=== PATIENT | female | born 1940 | race Caucasian/White ===

== ENCOUNTER → 2017-10-26 | Outpatient (CLI) | payer OTHER, MEDICAID ==
[~2017-10-26] MED LIST: CHOLESTEROL MED; CRESTOR20 MG PO; LOPRESSOR25 PO; LUNESTA1 MG PO; NEXIUM40 MG PO; ZANTAC
== END ==
LOC: M.RAD 12:36
DX: Z12.31 Encounter for screening mammogram for malignant neoplasm of breast (principal)

== ENCOUNTER → 2018-11-22 | Outpatient (CLI) | payer OTHER, MEDICAID | LOC: M.RAD 13:28 | DX: Z12.31 Encounter for screening mammogram for malignant neoplasm of breast (principal) ==

== ENCOUNTER 2019-05-15 15:46 | Emergency (ER) | payer OTHER, MEDICAID ==
[~2019-05-15] VITALS: Ht 162.6 cm; Wt 80.3 kg
[2019-05-15] MEDS ORDERED: TYLENOL325 MG PO (15:52)
[2019-05-15] MEDS ORDERED: DILTIAZEM ER90 M1 PO (15:53)
[2019-05-15] MEDS ORDERED: ASPIR 8181 MG PO (15:53)
[2019-05-15] MEDS ORDERED: NEXIUM40 MG PO (15:53)
[2019-05-15] MEDS ORDERED: XANAX 0.5 MG0.5 MG PO (15:53)
[2019-05-15] MEDS ORDERED: CALCIUM 600 +1 EAC1 PO (15:53)
[2019-05-15] MEDS ORDERED: FISH OIL 1,001000 M2 PO (15:54)
[2019-05-15] MEDS ORDERED: OMACOR1 G1 PO (15:54)
[2019-05-15] MEDS ORDERED: MAGNESIUM400 MG PO (15:54)
[2019-05-15] MEDS ORDERED: VITCB500GO PO (15:55)
[2019-05-15] MEDS ORDERED: VITAMIN D5000 UNIT PO (15:55)
[2019-05-15] MEDS ORDERED: PRESERVISION A1 EAC2 PO (15:55)
[2019-05-15] MEDS ORDERED: NITROFURANTOIN25 MG PO (15:56)
[2019-05-15 16:11] LABS: HEMATOCRIT 37.4 % (37.0-47.0); MCH 30.4 pg (26.0-34.0); MCHC 33.8 g/dL (28.0-37.0); MCV 89.9 fL (80.0-100.0); MPV 7.1 fl. (7.2-11.1); NUCLEATED RBCS 0 /100WBC; RBC 4.16 mil/uL (4.20-5.00)
[2019-05-15 16:12] LABS: HEMOGLOBIN 12.6 gm/dL (12.0-15.0); RDW-CV 15.1 % (10.5-14.5); WBC 6.1 thou/uL (4.0-11.0)
[2019-05-15 16:17] LABS: ANION GAP 9 mmol/L (7-16); BUN 21 mg/dL (7-18); CALCIUM 8.4 mg/dL (8.5-10.1); CHLORIDE 103 mmol/L (98-107); CO2 26 mmol/L (21-32); CREATININE 0.6 mg/dL (0.6-1.3); GLUCOSE 113 mg/dL (70-99); POTASSIUM 4.1 mmol/L (3.5-5.1); SODIUM 138 mmol/L (136-145)
[2019-05-15 16:27] LABS: ALBUMIN 3.3 g/dL (3.4-5.0); ALKALINE PHOSPHATASE 73 U/L (46-116); SGOT 23 U/L (15-37); SGPT 26 U/L (30-65); TOTAL BILIRUBIN 0.2 mg/dL (<0.1-1.0); TROPONIN-I LEVEL <0.06 ng/mL (<0.06)
[2019-05-15 16:50] LABS: ABSOLUTE EOSINOPHILS 0.1 thou/uL (0.0-0.7); ABSOLUTE LYMPHOCYTES 2.9 thou/uL (0.8-5.3); ABSOLUTE MONOCYTES 0.2 thou/uL (0.0-1.2); ABSOLUTE NEUTROPHILS 2.9 thou/uL (1.6-8.1)
[2019-05-15 16:51] LABS: PLATELET COUNT* 227 thou/uL (150-400); PLATELET ESTIMATE ADEQUATE
[2019-05-15 17:59] VITALS: BP 116/61
--- NOTE | 2019-05-16 17:17 | EKG ---
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 : 1940 Requested By: Yolie Graham Order Number: [id number] MD: Gaudencio Osman Measurements Intervals [place] Rate: 87 P: 79 PA: 269 QRS: -35 QRSD: 133 T: 29 QT: 374 QTc: 450 Interpretive Statements Sinus rhythm Prolonged PA interval Right bundle branch block Compared to ECG 10/25/2016 16:05:42 No significant changes Electronically Signed On 05-16-2019 17:17:10 CDT by Gaudencio Osman [email or web address] <ELECTRONICALLY SIGNED> By: Gaudencio Osman MD, [facility] 05/16/19 1717 1550 1550 Gaudencio Osman MD, FACC /EPI
== END 2019-05-15 18:00 | disposition home or self-care (01) ==
LOC: M.ERS 15:46
PROVIDERS: Personal Emergency Response Attendant
DX: I47.1 Supraventricular tachycardia (principal); G89.29 Other chronic pain; M54.9 Dorsalgia, unspecified; Z90.49 Acquired absence of other specified parts of digestive tract; Z90.710 Acquired absence of both cervix and uterus; Z88.0 Allergy status to penicillin

== ENCOUNTER 2019-10-03 10:57 | Emergency (ER) | payer OTHER, MEDICAID ==
[~2019-10-03] VITALS: Ht 160 cm; Wt 73.9 kg
[~2019-10-03 10:57] MED LIST changes: +ASPIR 8181 MG PO; +CALCIUM 600 +1 EAC1 PO; +DILTIAZEM ER90 M1 PO; +FISH OIL 1,001000 M2 PO; +MAGNESIUM400 MG PO; +NITROFURANTOIN25 MG PO; +OMACOR1 G1 PO; +PRESERVISION A1 EAC2 PO; +TYLENOL325 MG PO; +VITAMIN D5000 UNIT PO; +VITCB500GO PO; +XANAX 0.5 MG0.5 MG PO
[2019-10-03 11:23] LABS: ABSOLUTE EOSINOPHILS 0.2 thou/uL (0.0-0.7); ABSOLUTE LYMPHOCYTES 1.2 thou/uL (0.8-5.3); ABSOLUTE MONOCYTES 0.4 thou/uL (0.0-1.2); ABSOLUTE NEUTROPHILS 3.3 thou/uL (1.6-8.1); BASOPHILS 0.7 %; HEMATOCRIT 37.1 % (37.0-47.0); HEMOGLOBIN 12.6 gm/dL (12.0-15.0); MCH 30.5 pg (26.0-34.0); MCHC 33.8 g/dL (28.0-37.0); MCV 90.2 fL (80.0-100.0); MONOCYTES 8.2 %; NUCLEATED RBCS 0 /100WBC; PLATELET COUNT* 233 thou/uL (150-400); POLYS 64.1 %; RBC 4.11 mil/uL (4.20-5.00); RDW-CV 15.5 % (10.5-14.5); WBC 5.2 thou/uL (4.0-11.0)
[2019-10-03 11:32] LABS: CALCIUM 8.6 mg/dL (8.5-10.1); CREATININE 0.8 mg/dL (0.6-1.3); POTASSIUM 3.6 mmol/L (3.5-5.1)
[2019-10-03 11:41] LABS: APTT 26.4 Seconds (25.0-31.3); PROTIME 10.1 Seconds (9.20-11.50)
[2019-10-03 11:46] LABS: ALBUMIN 3.5 g/dL (3.4-5.0); CK-MB MASS 1.4 ng/mL (<0.5-3.6); MAGNESIUM 1.9 mg/dL (1.8-2.4); TOTAL BILIRUBIN 0.4 mg/dL (<0.1-1.0); TOTAL PROTEIN 7.2 g/dL (6.4-8.2)
[2019-10-03 12:23] VITALS: BP 108/55
--- NOTE | 2019-10-03 14:25 | EKG ---
[place] [address] ELECTROCARDIOGRAM REPORT Name: KENDALL DOMINGUEZ Room: 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: : 1940 Requested By: Denver Chandler Order Number: [id number] MD: Gaudencio Osman Measurements Intervals [place] Rate: 182 P: 0 [place]: QRS: 161 QRSD: 148 T: -18 QT: 269 QTc: 468 Interpretive Statements Extreme tachycardia with wide complex, no further rhythm analysis attempted Compared to ECG 05/15/2019 15:50:03 Sinus rhythm no longer present First degree AV block no longer present Right bundle-branch block no longer present Electronically Signed On 10-03-2019 14:25:00 MICROBIOLOGY INSTRUCTOR by Gaudencio Osman [email or web address] <ELECTRONICALLY SIGNED> By: Gaudencio Osman MD, FACC 10/03/19 1425 1103 1103 Gaudencio Osman MD, FAC /EPI
--- NOTE | 2019-10-03 14:26 | EKG ---
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: : 1940 Requested By: Denver Chandler Order Number: [id number] Yasmine MD: Gaudencio Osman Measurements Intervals [place] Rate: 91 P: 148 MD: 249 QRS: -26 QRSD: 140 T: 45 QT: 367 QTc: 452 Interpretive Statements Sinus or ectopic atrial rhythm Prolonged MD interval Right bundle branch block Compared to ECG 05/15/2019 15:50:03 Ectopic atrial rhythm now present Sinus rhythm no longer present Electronically Signed On 10-03-2019 14:25:06 WEBFOCUS DEVELOPER by Gaudencio Osman [email or web address] <ELECTRONICALLY SIGNED> By: Gaudencio Osman MD, FAC 10/03/19 1425 1112 1112 Gaudencio Osman MD, [facility] /EPI
== END 2019-10-03 12:23 | disposition home or self-care (01) ==
LOC: M.ERS 10:57
PROVIDERS: Family Medicine
DX: I47.1 Supraventricular tachycardia (principal); G89.29 Other chronic pain; Z88.0 Allergy status to penicillin; Z90.710 Acquired absence of both cervix and uterus; Z90.49 Acquired absence of other specified parts of digestive tract

== ENCOUNTER 2020-04-24 16:03 | Emergency (ER) | payer OTHER, MEDICAID ==
[~2020-04-24] VITALS: Ht 160 cm; Wt 71.2 kg
[2020-04-24] MEDS ORDERED: MACROBID 100 M100 MG PO (16:12)
[2020-04-24 16:23] LABS: ABSOLUTE EOSINOPHILS 0.1 thou/uL (0.0-0.7); ABSOLUTE LYMPHOCYTES 1.1 thou/uL (0.8-5.3); ABSOLUTE MONOCYTES 0.6 thou/uL (0.0-1.2); ABSOLUTE NEUTROPHILS 5.5 thou/uL (1.6-8.1); BASOPHILS 0.5 %; EOSINOPHILS 1.6 %; HEMATOCRIT 37.6 % (37.0-47.0); HEMOGLOBIN 12.7 gm/dL (12.0-15.0); LYMPHOCYTES 15.4 %; MCH 29.5 pg (26.0-34.0); MCHC 33.7 g/dL (28.0-37.0); MCV 87.7 fL (80.0-100.0); MPV 6.4 fl. (7.2-11.1); NUCLEATED RBCS 0 /100WBC; PLATELET COUNT* 209 thou/uL (150-400); POLYS 74.5 %; RBC 4.29 mil/uL (4.20-5.00); RDW-CV 15.4 % (10.5-14.5); WBC 7.3 thou/uL (4.0-11.0)
[2020-04-24 16:32] LABS: CALCIUM 8.3 mg/dL (8.5-10.1); CREATININE 0.9 mg/dL (0.6-1.3); POTASSIUM 3.5 mmol/L (3.5-5.1)
[2020-04-24 16:35] LABS: APTT 25.9 Seconds (25.0-31.3); PROTIME 10.4 Seconds (9.20-11.50)
[2020-04-24 16:44] LABS: ALBUMIN 3.5 g/dL (3.4-5.0); CK-MB MASS 1.6 ng/mL (<0.5-3.6); MAGNESIUM 2.1 mg/dL (1.8-2.4); TOTAL BILIRUBIN 0.3 mg/dL (<0.1-1.0); TOTAL PROTEIN 7.1 g/dL (6.4-8.2)
[2020-04-24 17:52] VITALS: BP 119/66
--- NOTE | 2020-04-25 13:10 | EKG ---
[place] [address] ELECTROCARDIOGRAM REPORT Name: CECILLETKENDALL Room: [facility]#: [id number] Admission: 04/24/20 Attend Phys: Discharge: 04/24/20 Date of : 38 Date of Service: 04/24/20 1607 Report #: [id number] THIS REPORT FOR: //name// [facility] ED Test Date: 2020-04-24 Test Time: 16:07:11 Pat Name: KENDALL DOMINGUEZ Department: Room: Gender: Adjuster: NATASHA : 1940 Requested By: Denver Chandler Order Number: [id number] MD: Kavon Wong Measurements Intervals [place] Rate: 172 P: 0 [place]: QRS: -58 QRSD: 138 T: 15 QT: 292 QTc: 494 Interpretive Statements Wide-QRS tachycardia RBBB and LAFB Baseline wander in lead(s) I,aVR,aVL,V5,V6 Compared to ECG 10/03/2019 11:12:31 Left anterior fascicular block now present Ectopic atrial rhythm no longer present First degree AV block no longer present Electronically Signed On 04-25-2020 13:10:11 CDT by Kavon Wong [email or web address] <ELECTRONICALLY SIGNED> By: Tuan Wong MD, [facility] 04/25/20 1310 06 1607 Tuan Wong MD, [facility] /EPI
--- NOTE | 2020-04-27 17:29 | EKG ---
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
== END 2020-04-24 17:54 | disposition home or self-care (01) ==
LOC: M.ERS 16:03
PROVIDERS: Family Medicine
DX: S01.01XA Laceration without foreign body of scalp, initial encounter (principal); R55 Syncope and collapse; I47.1 Supraventricular tachycardia; G89.29 Other chronic pain; Z88.0 Allergy status to penicillin; Z79.899 Other long term (current) drug therapy; Z79.82 Long term (current) use of aspirin; Z90.710 Acquired absence of both cervix and uterus; Z90.49 Acquired absence of other specified parts of digestive tract; W01.198A Fall on same level from slipping, tripping and stumbling with subsequent striking against other object, initial encounter; Y93.89 Activity, other specified; Y92.098 Other place in other non-institutional residence as the place of occurrence of the external cause; Y99.9 Unspecified external cause status

== ENCOUNTER 2021-09-18 13:27 | Emergency (ER) | payer OTHER, MEDICAID ==
[~2021-09-18] VITALS: Ht 162.6 cm; Wt 67.1 kg
[~2021-09-18 13:27] MED LIST changes: +MACROBID 100 M100 MG PO
[2021-09-18 15:27] LABS: ABSOLUTE EOSINOPHILS 0.1 thou/uL (0.0-0.7); ABSOLUTE MONOCYTES 0.5 thou/uL (0.0-1.2); ABSOLUTE NEUTROPHILS 3.1 thou/uL (1.6-8.1); BASOPHILS 0.5 %; EOSINOPHILS 1.9 %; HEMATOCRIT 35.5 % (37.0-47.0); HEMOGLOBIN 11.7 gm/dL (12.0-15.0); LYMPHOCYTES 20.6 %; MCH 29.5 pg (26.0-34.0); MCHC 32.9 g/dL (28.0-37.0); MCV 89.7 fL (80.0-100.0); MONOCYTES 9.8 %; MPV 6.7 fl. (7.2-11.1); NUCLEATED RBCS 0 /100WBC; PLATELET COUNT* 226 thou/uL (150-400); POLYS 67.2 %; RBC 3.96 mil/uL (4.20-5.00); RDW-CV 14.8 % (10.5-14.5); WBC 4.7 thou/uL (4.0-11.0)
[2021-09-18 15:39] LABS: CALCIUM 8.4 mg/dL (8.5-10.1); CREATININE 0.8 mg/dL (0.6-1.3); POTASSIUM 3.7 mmol/L (3.5-5.1)
[2021-09-18 15:41] LABS: APTT 25.7 Seconds (25.0-31.3); INR 1.1; PROTIME 10.9 Seconds (9.20-11.50)
[2021-09-18 15:49] LABS: ALBUMIN 3.3 g/dL (3.4-5.0); TOTAL BILIRUBIN 0.2 mg/dL (<0.1-1.0); TOTAL PROTEIN 6.4 g/dL (6.4-8.2)
[2021-09-18 18:30] VITALS: BP 121/63
--- NOTE | 2021-09-19 08:14 | EKG ---
[place] [address] ELECTROCARDIOGRAM REPORT Name: KENDALL DOMINGUEZ Room: [facility]#: [id number] Admission: 09/18/21 Attend Phys: Discharge: 09/18/21 Date of : 38 Date of Service: 09/18/21 1340 Report #: [id number] THIS REPORT FOR: //name// [facility] ED Test Date: 2021-09-18 Test Time: 13:40:01 Pat Name: KENDALL DOMINGUEZ Department: Room: Gender: Phone Specialist: ABBY : 1940 Requested By: Lakshmi Daniel Order Number: [id number] MD: Gaudencio Osman Measurements Intervals [place] Rate: 80 P: 51 [place]: 209 QRS: -52 QRSD: 147 T: 12 QT: 387 QTc: 447 Interpretive Statements Sinus rhythm RBBB and LAFB Compared to ECG 04/24/2020 16:21:29 First degree AV block no longer present Electronically Signed On 09-19-2021 8:14:16 PANTOGRAPH WATCHER by Gaudencio Osman [email or web address] <ELECTRONICALLY SIGNED> By: Gaudencio Osman MD, FACC 09/19/21 0814 1340 1340 Gaudencio Osman MD, [facility] /EPI
== END 2021-09-18 18:30 | disposition home or self-care (01) ==
LOC: M.ERS 13:27
DX: R00.0 Tachycardia, unspecified (principal); D64.9 Anemia, unspecified; R00.2 Palpitations; Z86.79 Personal history of other diseases of the circulatory system; Z79.82 Long term (current) use of aspirin; Z90.710 Acquired absence of both cervix and uterus; Z90.49 Acquired absence of other specified parts of digestive tract; Z79.899 Other long term (current) drug therapy; Z79.2 Long term (current) use of antibiotics; Z88.0 Allergy status to penicillin